=== PATIENT | male | born 1950 | race Caucasian/White ===

== ENCOUNTER 2018-01-19 06:22 | Inpatient (IN) | payer MEDICARE ==
[2018-01-19 06:44] LABS: ADD MAN DIFF? NO
[2018-01-19] MEDS: SOD CHLORIDE 0.9% 1,000 ML IV (06:44)
[2018-01-19] MEDS: DILTIAZEM 25 MG INJ IV (06:44)
[2018-01-19 06:45] LABS: WHITE BLOOD COUNT 6.1 10^3/ul (4.8-10.8)
[2018-01-19 06:45] LABS: BASOPHILS % 0.3 % (0.0-2.0); EOSINOPHILS % 0.7 % (0.0-7.0); HEMATOCRIT 46.1 % (42.0-52.0); HEMOGLOBIN 15.3 g/dl (14.0-18.0); LYMPHOCYTES # 1.2 10^3/ul (0.8-2.9); LYMPHOCYTES % 20.2 % (15.0-51.0); MEAN CORPUSCULAR HEMOGLOBIN 32.7 pg (29.0-33.0); MEAN CORPUSCULAR HGB CONC 33.2 g/dl (32.0-37.0); MEAN CORPUSCULAR VOLUME 98.5 fl (82.0-101.0); MEAN PLATELET VOLUME 11.7 fl (7.4-10.4); MONOCYTE # 0.3 10^3/ul (0.3-0.9); MONOCYTES % 4.9 % (0.0-11.0); NEUTROPHIL # 4.5 10^3/ul (1.6-7.5); NEUTROPHILS % 73.7 % (39.0-77.0); PLATELET COUNT 197 10^3/UL (140-415); RED BLOOD COUNT 4.68 10^6/ul (4.70-6.10); RED CELL DISTRIBUTION WIDTH 15.6 % (11.5-14.5)
[2018-01-19 07:05] LABS: INR 1.05; PARTIAL THROMBOPLASTIN TIME 27.5 Sec (23.0-35.0); PROTIME 13.8 Sec (11.9-14.9); PT RATIO 1.1
[2018-01-19] MEDS: DILTIAZEM (CD) 120 MG CAP PO (07:14)
[2018-01-19] MEDS: FUROSEMIDE 40 MG INJ IV ×2 (07:14→17:17)
[2018-01-19] MEDS: ASPIRIN 81 MG TAB PO (07:14)
[2018-01-19 07:20] LABS: ALANINE AMINOTRANSFERASE 49 IU/L (13-69); ALBUMIN 3.8 g/dl (3.3-4.9); ALBUMIN/GLOBULIN RATIO 1.72; ALKALINE PHOSPHATASE 53 IU/L (42-121); ANION GAP 14 (5-13); ASPARTATE AMINO TRANSFERASE 39 IU/L (15-46); BLOOD UREA NITROGEN 29 mg/dl (7-20); CALCIUM 9.6 mg/dl (8.4-10.2); CARBON DIOXIDE 18 mmol/L (21-31); CHLORIDE 109 mmol/L (97-110); CREATININE 1.05 mg/dl (0.61-1.24); Estimated GFR > 60 mL/min (>60); GLUCOSE 161 mg/dl (70-220); LIPASE 108 U/L (23-300); POTASSIUM 4.5 mmol/L (3.5-5.1); SODIUM 141 mmol/L (135-144)
[2018-01-19 07:30] LABS: BILIRUBIN,INDIRECT 0.9 mg/dl (0-1.1); BILIRUBIN,TOTAL 0.9 mg/dl (0.2-1.3)
[2018-01-19 07:34] LABS: TROPONIN-I 0.206 ng/ml (0.000-0.120)
[2018-01-19 07:58] LABS: B-TYPE NATRIURETIC PEPTIDE 13900 PG/ML (0-125)
[2018-01-19] MEDS: ENALAPRILAT 1.25 MG INJ IV (08:50)
[2018-01-19] MEDS: NITROGLYCERIN (SL) 0.4 MG TAB SL (09:03)
[2018-01-19 12:36] LABS: HEMOGLOBIN A1C 6.4 % (0-5.9)
[2018-01-19 12:48] LABS: INR 1.08; PROTIME 14.1 Sec (11.9-14.9); PT RATIO 1.1
[2018-01-19 12:49] LABS: PARTIAL THROMBOPLASTIN TIME 29.1 Sec (23.0-35.0)
[2018-01-19 12:56] LABS: CREATINE KINASE 160 IU/L (23-200)
[2018-01-19 12:57] LABS: MAGNESIUM 1.7 mg/dl (1.7-2.5)
[2018-01-19 12:57] LABS: PHOSPHORUS 4.1 mg/dl (2.5-4.9)
[2018-01-19] MEDS: ENOXAPARIN 80 MG/0.8 ML SYG SC ×2 (12:58→20:36)
[2018-01-19] MEDS ORDERED: ENOXAPARIN 100 MG/ML SYG SC (13:00)
[2018-01-19 13:10] LABS: CK INDEX 2.9; CK-MB 4.65 ng/ml (0.0-2.4)
[2018-01-19 13:15] LABS: TROPONIN-I 0.227 ng/ml (0.000-0.120)
[2018-01-19 14:14] LABS: ADD UMIC NO; UR ASCORBIC ACID NEGATIVE (NEGATIVE); UR BILIRUBIN (Dip) NEGATIVE (NEGATIVE); UR BLOOD (Dip) NEGATIVE (NEGATIVE); UR CLARITY CLEAR (CLEAR); UR COLOR STRAW (YELLOW); UR GLUCOSE (Dip) NEGATIVE (NEGATIVE); UR KETONES (Dip) NEGATIVE (NEGATIVE); UR LEUKOCYTE ESTERASE (Dip) NEGATIVE Leu/ul (NEGATIVE); UR NITRITE (Dip) NEGATIVE (NEGATIVE); UR SPECIFIC GRAVITY (Dip) 1.008 (1.003-1.030); UR TOTAL PROTEIN (Dip) NEGATIVE (NEGATIVE); UR UROBILINOGEN (Dip) NEGATIVE (NEGATIVE)
[2018-01-19 14:15] LABS: FREE T4 (FREE THYROXINE) 1.44 ng/dl (0.78-2.44)
[2018-01-19 14:39] LABS: AMPHETAMINE/METHAMPHETAMINE Negative (NEGATIVE); BARBITURATES Negative (NEGATIVE); BENZODIAZEPINES Negative (NEGATIVE); CANNABINOIDS Negative (NEGATIVE); COCAINE Negative (NEGATIVE); OPIATES Negative (NEGATIVE)
[2018-01-19] MEDS: PNEUMOC 13-VAL CONJ-DIP CRM/PF 0.5 ML SYR IM* (15:06)
[2018-01-19] MEDS: MAGNESIUM SULFATE 2 GM/50 ML 50 ML IVPB (18:20)
[2018-01-19] MEDS: WARFARIN 7.5 MG TAB PO (18:30)
[2018-01-19 19:05] LABS: CREATINE KINASE 170 IU/L (23-200)
[2018-01-19 19:18] LABS: CK INDEX 2.7; CK-MB 4.57 ng/ml (0.0-2.4)
[2018-01-19 19:23] LABS: TROPONIN-I 0.252 ng/ml (0.000-0.120)
[2018-01-19] MEDS: AMIODARONE 200 MG TAB PO (20:22)
[2018-01-19] MEDS: FAMOTIDINE 20 MG TAB PO (20:22)
[2018-01-19] MEDS: ATORVASTATIN 20 MG TAB PO (20:22)
[2018-01-19] MEDS: DOCUSATE SODIUM 100 MG CAP PO (20:23)
[2018-01-20] MEDS: FUROSEMIDE 40 MG INJ IV (05:38)
[2018-01-20 06:13] LABS: ADD MAN DIFF? NO
[2018-01-20 06:18] LABS: BASOPHILS % 0.5 % (0.0-2.0); EOSINOPHILS # 0.1 10^3/ul (0.0-0.5); EOSINOPHILS % 1.1 % (0.0-7.0); HEMATOCRIT 39.8 % (42.0-52.0); HEMOGLOBIN 13.6 g/dl (14.0-18.0); LYMPHOCYTES # 1.7 10^3/ul (0.8-2.9); LYMPHOCYTES % 28.9 % (15.0-51.0); MEAN CORPUSCULAR HGB CONC 34.2 g/dl (32.0-37.0); MEAN CORPUSCULAR VOLUME 96.6 fl (82.0-101.0); MEAN PLATELET VOLUME 11.9 fl (7.4-10.4); MONOCYTE # 0.6 10^3/ul (0.3-0.9); MONOCYTES % 9.8 % (0.0-11.0); NEUTROPHIL # 3.4 10^3/ul (1.6-7.5); NEUTROPHILS % 59.5 % (39.0-77.0); PLATELET COUNT 156 10^3/UL (140-415); RED BLOOD COUNT 4.12 10^6/ul (4.70-6.10); RED CELL DISTRIBUTION WIDTH 15.6 % (11.5-14.5)
[2018-01-20 06:18] LABS: WHITE BLOOD COUNT 5.7 10^3/ul (4.8-10.8)
[2018-01-20 06:35] LABS: PROTIME 15.4 Sec (11.9-14.9); PT RATIO 1.2
[2018-01-20 06:37] LABS: ANION GAP 6 (5-13); BLOOD UREA NITROGEN 33 mg/dl (7-20); CALCIUM 9.2 mg/dl (8.4-10.2); CARBON DIOXIDE 27 mmol/L (21-31); CHLORIDE 109 mmol/L (97-110); CHOL/HDL RATIO 3.3 RATIO; CHOLESTEROL 127 mg/dl (100-200); CREATININE 1.19 mg/dl (0.61-1.24); Estimated GFR > 60 mL/min (>60); GLUCOSE 92 mg/dl (70-220); HDL CHOLESTEROL 38 mg/dl (30-78); LDL CHOLESTEROL,CALCULATED 78 mg/dl; POTASSIUM 4.9 mmol/L (3.5-5.1); SODIUM 142 mmol/L (135-144); TRIGLYCERIDES 55 mg/dl (0-149)
[2018-01-20 06:46] LABS: MAGNESIUM 1.7 mg/dl (1.7-2.5)
[2018-01-20] MEDS: ASPIRIN (EC) 81 MG TAB PO (08:12)
[2018-01-20] MEDS: DOCUSATE SODIUM 100 MG CAP PO ×2 (08:12→20:36)
[2018-01-20] MEDS: FAMOTIDINE 20 MG TAB PO ×2 (08:12→20:35)
[2018-01-20] MEDS: LISINOPRIL 5 MG TAB PO ×2 (08:12→20:37)
[2018-01-20] MEDS: ENOXAPARIN 80 MG/0.8 ML SYG SC ×2 (08:24→20:48)
[2018-01-20] MEDS: AMIODARONE 200 MG TAB PO (09:11)
[2018-01-20] MEDS: FUROSEMIDE 20 MG INJ IV (14:55)
[2018-01-20] MEDS: MAGNESIUM SULFATE 2 GM/50 ML 50 ML IVPB (15:27)
[2018-01-20] MEDS: WARFARIN 5 MG TAB PO (16:14)
[2018-01-20] MEDS: ATORVASTATIN 20 MG TAB PO (20:36)
[2018-01-21] MEDS: FUROSEMIDE 40 MG INJ IV (05:21)
[2018-01-21 05:57] LABS: ADD MAN DIFF? NO
[2018-01-21 06:03] LABS: WHITE BLOOD COUNT 5.2 10^3/ul (4.8-10.8)
[2018-01-21 06:03] LABS: BASOPHILS % 0.4 % (0.0-2.0); EOSINOPHILS # 0.1 10^3/ul (0.0-0.5); EOSINOPHILS % 1.2 % (0.0-7.0); HEMATOCRIT 39.2 % (42.0-52.0); HEMOGLOBIN 13.5 g/dl (14.0-18.0); LYMPHOCYTES # 1.6 10^3/ul (0.8-2.9); LYMPHOCYTES % 31.4 % (15.0-51.0); MEAN CORPUSCULAR HEMOGLOBIN 32.8 pg (29.0-33.0); MEAN CORPUSCULAR HGB CONC 34.4 g/dl (32.0-37.0); MEAN CORPUSCULAR VOLUME 95.4 fl (82.0-101.0); MEAN PLATELET VOLUME 12.1 fl (7.4-10.4); MONOCYTE # 0.4 10^3/ul (0.3-0.9); MONOCYTES % 7.9 % (0.0-11.0); NEUTROPHIL # 3.1 10^3/ul (1.6-7.5); NEUTROPHILS % 59.1 % (39.0-77.0); PLATELET COUNT 166 10^3/UL (140-415); RED BLOOD COUNT 4.11 10^6/ul (4.70-6.10); RED CELL DISTRIBUTION WIDTH 15.1 % (11.5-14.5)
[2018-01-21 06:21] LABS: INR 1.32; PROTIME 16.6 Sec (11.9-14.9); PT RATIO 1.3
[2018-01-21 06:47] LABS: MAGNESIUM 1.9 mg/dl (1.7-2.5)
[2018-01-21 06:48] LABS: ANION GAP 4 (5-13); BLOOD UREA NITROGEN 32 mg/dl (7-20); CALCIUM 8.6 mg/dl (8.4-10.2); CARBON DIOXIDE 26 mmol/L (21-31); CHLORIDE 109 mmol/L (97-110); CREATININE 1.09 mg/dl (0.61-1.24); Estimated GFR > 60 mL/min (>60); GLUCOSE 87 mg/dl (70-220); POTASSIUM 3.4 mmol/L (3.5-5.1); SODIUM 139 mmol/L (135-144)
[2018-01-21] MEDS: DOCUSATE SODIUM 100 MG CAP PO ×2 (08:20→21:47)
[2018-01-21] MEDS: AMIODARONE 200 MG TAB PO (08:21)
[2018-01-21] MEDS: ASPIRIN (EC) 81 MG TAB PO (08:22)
[2018-01-21] MEDS: FAMOTIDINE 20 MG TAB PO ×2 (08:22→21:47)
[2018-01-21] MEDS: LISINOPRIL 5 MG TAB PO ×2 (08:23→21:48)
[2018-01-21] MEDS: ENOXAPARIN 80 MG/0.8 ML SYG SC ×2 (09:18→22:12)
[2018-01-21] MEDS: POTASSIUM CHLORIDE (SR) 20 MEQ TAB PO ×2 (11:09→15:42)
[2018-01-21] MEDS: WARFARIN 5 MG TAB PO (16:07)
[2018-01-21] MEDS: WARFARIN 7.5 MG TAB PO (17:20)
[2018-01-21] MEDS: WARFARIN 2.5 MG TAB PO (17:46)
[2018-01-21] MEDS: ATORVASTATIN 20 MG TAB PO (21:47)
[2018-01-22] MEDS: FUROSEMIDE 20 MG TAB PO (05:32)
[2018-01-22 06:23] LABS: WHITE BLOOD COUNT 5.1 10^3/ul (4.8-10.8)
[2018-01-22 06:23] LABS: ADD MAN DIFF? NO; BASOPHILS % 0.4 % (0.0-2.0); EOSINOPHILS # 0.1 10^3/ul (0.0-0.5); HEMATOCRIT 39.9 % (42.0-52.0); HEMOGLOBIN 13.6 g/dl (14.0-18.0); LYMPHOCYTES # 1.7 10^3/ul (0.8-2.9); LYMPHOCYTES % 33.3 % (15.0-51.0); MEAN CORPUSCULAR HEMOGLOBIN 33.1 pg (29.0-33.0); MEAN CORPUSCULAR HGB CONC 34.1 g/dl (32.0-37.0); MEAN CORPUSCULAR VOLUME 97.1 fl (82.0-101.0); MEAN PLATELET VOLUME 11.7 fl (7.4-10.4); MONOCYTE # 0.5 10^3/ul (0.3-0.9); MONOCYTES % 9.4 % (0.0-11.0); NEUTROPHIL # 2.8 10^3/ul (1.6-7.5); NEUTROPHILS % 54.7 % (39.0-77.0); PLATELET COUNT 170 10^3/UL (140-415); RED BLOOD COUNT 4.11 10^6/ul (4.70-6.10); RED CELL DISTRIBUTION WIDTH 15.3 % (11.5-14.5)
[2018-01-22 06:29] LABS: ANION GAP 5 (5-13); BLOOD UREA NITROGEN 28 mg/dl (7-20); CALCIUM 8.9 mg/dl (8.4-10.2); CARBON DIOXIDE 29 mmol/L (21-31); CHLORIDE 105 mmol/L (97-110); CREATININE 1.22 mg/dl (0.61-1.24); Estimated GFR 59 mL/min (>60); GLUCOSE 92 mg/dl (70-220); POTASSIUM 4.7 mmol/L (3.5-5.1); SODIUM 139 mmol/L (135-144)
[2018-01-22 06:40] LABS: INR 1.55; PROTIME 18.9 Sec (11.9-14.9); PT RATIO 1.5
[2018-01-22] MEDS: DOCUSATE SODIUM 100 MG CAP PO ×2 (08:35→20:03)
[2018-01-22] MEDS: FAMOTIDINE 20 MG TAB PO ×2 (08:35→20:04)
[2018-01-22] MEDS: AMIODARONE 200 MG TAB PO (08:36)
[2018-01-22] MEDS: ASPIRIN (EC) 81 MG TAB PO (08:36)
[2018-01-22] MEDS: LISINOPRIL 5 MG TAB PO ×2 (08:37→20:11)
[2018-01-22] MEDS: ENOXAPARIN 80 MG/0.8 ML SYG SC ×2 (08:58→20:48)
[2018-01-22] MEDS: WARFARIN 5 MG TAB PO (17:51)
[2018-01-22] MEDS: ATORVASTATIN 20 MG TAB PO (20:02)
[2018-01-23] MEDS: FUROSEMIDE 20 MG TAB PO (05:39)
[2018-01-23 05:54] LABS: INR 1.64; PROTIME 19.8 Sec (11.9-14.9); PT RATIO 1.5
[2018-01-23] MEDS: ASPIRIN (EC) 81 MG TAB PO (08:31)
[2018-01-23] MEDS: AMIODARONE 200 MG TAB PO (08:32)
[2018-01-23] MEDS: FAMOTIDINE 20 MG TAB PO ×2 (08:32→20:18)
[2018-01-23] MEDS: LISINOPRIL 5 MG TAB PO ×2 (08:33→20:19)
[2018-01-23] MEDS: DOCUSATE SODIUM 100 MG CAP PO ×2 (08:34→20:19)
[2018-01-23] MEDS: ENOXAPARIN 80 MG/0.8 ML SYG SC ×2 (08:38→21:33)
[2018-01-23] MEDS: WARFARIN 5 MG TAB PO (16:58)
[2018-01-23] MEDS: ATORVASTATIN 20 MG TAB PO (20:18)
[2018-01-24] MEDS: FUROSEMIDE 20 MG TAB PO (04:50)
[2018-01-24 05:33] LABS: INR 1.74; PROTIME 20.7 Sec (11.9-14.9); PT RATIO 1.6
[2018-01-24] MEDS: FAMOTIDINE 20 MG TAB PO ×2 (09:01→21:37)
[2018-01-24] MEDS: LISINOPRIL 5 MG TAB PO ×2 (09:01→21:37)
[2018-01-24] MEDS: ASPIRIN (EC) 81 MG TAB PO (09:01)
[2018-01-24] MEDS: DOCUSATE SODIUM 100 MG CAP PO ×2 (09:01→21:38)
[2018-01-24] MEDS: AMIODARONE 200 MG TAB PO (09:02)
[2018-01-24] MEDS: ENOXAPARIN 80 MG/0.8 ML SYG SC ×2 (09:07→21:51)
[2018-01-24] MEDS: MAGNESIUM SULFATE 2 GM/50 ML 50 ML IVPB (16:20)
[2018-01-24] MEDS: WARFARIN 10 MG TAB PO (16:47)
[2018-01-24] MEDS: ATORVASTATIN 20 MG TAB PO (21:37)
[2018-01-25] MEDS: FUROSEMIDE 20 MG TAB PO (05:53)
[2018-01-25 06:06] LABS: ADD MAN DIFF? NO
[2018-01-25 06:23] LABS: BASOPHILS % 0.6 % (0.0-2.0); EOSINOPHILS # 0.1 10^3/ul (0.0-0.5); EOSINOPHILS % 2.6 % (0.0-7.0); HEMATOCRIT 42.1 % (42.0-52.0); HEMOGLOBIN 14.1 g/dl (14.0-18.0); LYMPHOCYTES # 1.4 10^3/ul (0.8-2.9); LYMPHOCYTES % 28.1 % (15.0-51.0); MEAN CORPUSCULAR HEMOGLOBIN 32.6 pg (29.0-33.0); MEAN CORPUSCULAR HGB CONC 33.5 g/dl (32.0-37.0); MEAN CORPUSCULAR VOLUME 97.2 fl (82.0-101.0); MONOCYTE # 0.4 10^3/ul (0.3-0.9); MONOCYTES % 7.9 % (0.0-11.0); NEUTROPHIL # 3.1 10^3/ul (1.6-7.5); NEUTROPHILS % 60.6 % (39.0-77.0); PLATELET COUNT 189 10^3/UL (140-415); RED BLOOD COUNT 4.33 10^6/ul (4.70-6.10); RED CELL DISTRIBUTION WIDTH 15.2 % (11.5-14.5)
[2018-01-25 06:23] LABS: WHITE BLOOD COUNT 5.1 10^3/ul (4.8-10.8)
[2018-01-25 06:40] LABS: INR 1.79; PROTIME 21.2 Sec (11.9-14.9); PT RATIO 1.7
[2018-01-25 06:41] LABS: ANION GAP 8 (5-13); BLOOD UREA NITROGEN 23 mg/dl (7-20); CALCIUM 8.8 mg/dl (8.4-10.2); CARBON DIOXIDE 27 mmol/L (21-31); CHLORIDE 105 mmol/L (97-110); CREATININE 0.92 mg/dl (0.61-1.24); Estimated GFR > 60 mL/min (>60); GLUCOSE 92 mg/dl (70-220); POTASSIUM 4.3 mmol/L (3.5-5.1); SODIUM 140 mmol/L (135-144)
[2018-01-25 06:53] LABS: MAGNESIUM 2.1 mg/dl (1.7-2.5)
[2018-01-25] MEDS: DOCUSATE SODIUM 100 MG CAP PO (08:35)
[2018-01-25] MEDS: ASPIRIN (EC) 81 MG TAB PO (08:35)
[2018-01-25] MEDS: AMIODARONE 200 MG TAB PO (08:36)
[2018-01-25] MEDS: LISINOPRIL 5 MG TAB PO (08:36)
[2018-01-25] MEDS: FAMOTIDINE 20 MG TAB PO (08:36)
[2018-01-25] MEDS: ENOXAPARIN 80 MG/0.8 ML SYG SC (08:41)
[2018-01-25] MEDS: WARFARIN 3 MG TAB PO (12:32)
[2018-01-25] MEDS ORDERED: WARFARIN 3 MG TAB PO (17:00)
[2018-01-25] MEDS ORDERED: WARFARIN 5 MG TAB PO (17:00)
== END 2018-01-25 15:45 | disposition home or self-care (01) | DRG 280 ==
LOC: E/R 06:22 → 6WM 08:12
DX: I48.0 Paroxysmal atrial fibrillation (principal); I21.4 Non-ST elevation (NSTEMI) myocardial infarction; I50.43 Acute on chronic combined systolic (congestive) and diastolic (congestive) heart failure; N39.0 Urinary tract infection, site not specified; I42.0 Dilated cardiomyopathy; I11.0 Hypertensive heart disease with heart failure; I34.0 Nonrheumatic mitral (valve) insufficiency; I27.20 Pulmonary hypertension, unspecified; R73.03 Prediabetes; E78.5 Hyperlipidemia, unspecified; I25.2 Old myocardial infarction
CPT/HCPCS: 36415; 71045; 80048; 80053; 80061; 80307; 81003; 82550; 82553; 83036; 83690; 83735; 83880; 84100; 84439; 84443; 84484; 85025; 85610; 85730; 90670; 90686; 93005; 93306; 96374; 96375; 99291-25